=== PATIENT | male | born 1955 | race Caucasian/White ===

== ENCOUNTER 2024-01-18 06:40 | Day surgery (SDC) | payer OTHER ==
[2024-01-13 09:15] VITALS: BP 163/77; PULSE 65; RESP 18
[2024-01-13 09:28] LABS: BASOPHILS # (AUTO) 0.03 K/uL (0.00-0.20); BASOPHILS % (AUTO) 0.6 % (0.0-5.0); EOSINOPHILS # (AUTO) 0.13 K/uL (0.00-0.70); EOSINOPHILS % (AUTO) 2.5 % (0.0-8.0); HEMATOCRIT 43.6 % (42-54); IMMATURE GRANULOCYTE ABSOLUTE 0.04 K/uL (0-1); LYMPHOCYTES # (AUTO) 1.2 K/uL (1.0-4.8); LYMPHOCYTES % (AUTO) 22.7 % (21.0-51.0); MEAN CORPUSCULAR HEMOGLOBIN 34.5 pg (27.0-33.0); MEAN CORPUSCULAR HGB CONC 32.8 g/dL (32.0-36.0); MEAN CORPUSCULAR VOLUME 105.3 fL (79-99); MONOCYTES # (AUTO) 0.5 K/uL (0.1-1.0); MONOCYTES % (AUTO) 9.1 % (3.0-13.0); NEUTROPHILS # (AUTO) 3.4 K/uL (1.8-7.7); NEUTROPHILS % (AUTO) 64.3 % (40.0-77.0); PLATELET COUNT (AUTO) 148 K/uL (130-400); RED BLOOD CELL COUNT(AUTO) 4.14 MIL/uL (4.50-6.20); RED CELL DISTRIBUTION WIDTH 13.7 % (11.0-15.5); WHITE BLOOD COUNT (AUTO) 5.3 K/uL (4.8-10.8)
[2024-01-13 09:42] LABS: CREATININE 0.9 mg/dL (0.5-1.3); POTASSIUM 5.3 mmol/L (3.5-5.1)
[2024-01-13 09:51] LABS: INR <= 0.93 (0.85-1.15); PROTHROMBIN TIME 10.9 SEC (9.6-11.6)
[2024-01-13 09:52] LABS: PARTIAL THROMBOPLASTIN TIME 27.1 SEC (26.3-35.5)
[2024-01-18] VITALS (18 sets, daily range): BP systolic 115–189; BP diastolic 62–101; PULSE 58–77; RESP 13–18
[~2024-01-18] VITALS: Ht 172.7 cm; Wt 100.6 kg
[~2024-01-18 06:40] MED LIST: ATOR10TA69 PO; GLARGINE SQ; GLIP10TA19 PO; LISI10TA24 PO; METF-446 PO; MVI PO; OMEP20CA12 PO
[2024-01-18 08:23] LABS: CREATININE 0.8 mg/dL (0.5-1.3); POTASSIUM 4.3 mmol/L (3.5-5.1)
[2024-01-18] MEDS ORDERED: ONDANSETRON 4MG INJ ONE (08:50)
[2024-01-18] MEDS ORDERED: PROPOFOL 10 MG/ML 20ML VIAL IV ONE (08:50)
[2024-01-18] MEDS ORDERED: FENTANYL CITRATE PF 50 MCG/1 ML 2ML VIAL ONE (08:50)
[2024-01-18] MEDS ORDERED: ROCURONIUM BROMIDE 10MG/1ML 5ML VL ONE (08:51)
[2024-01-18] MEDS ORDERED: MIDAZOLAM HCL 1 MG/ML 2ML VIAL ONE (08:51)
[2024-01-18] MEDS ORDERED: LIDOCAINE PF 100MG/5ML (2%) SYRINGE 5ML ONE (08:53)
[2024-01-18] MEDS: 0.9%NACL 1000ML 1,000 ML IV ONE (09:00)
[2024-01-18] MEDS: CEFAZOLIN SODIUM 2 GM VIAL ONE (09:00)
[2024-01-18] MEDS: BUPIVACAINE/PF 0.5% 30ML VIAL ONE (10:09)
[2024-01-18] MEDS: EPINEPHRINE PF 1MG (1:1,000) 1 MG/ML AMP ONE (10:09)
[2024-01-18] MEDS ORDERED: SUGAMMADEX SODIUM 200 MG/2 ML VIAL IV ONE (10:36)
[2024-01-18] MEDS ORDERED: DOCU-116 PO (10:39)
[2024-01-18] MEDS ORDERED: TRAM50TA4 PO (10:39)
[2024-01-18] MEDS ORDERED: GABA-529 PO (10:39)
[2024-01-18] MEDS ORDERED: METH-662 PO (10:39)
[2024-01-18] MEDS: IPRATROPIUM/ALBUTEROL SULFATE 3 ML SOLUTION IH ONE ×2 (11:55→11:58)
[2024-01-18] MEDS: KETOROLAC 15MG/ML VIAL (15MG/ML) ONE (11:59)
[2024-01-18] MEDS: LABETALOL 20MG SYG IV ONE (12:00)
== END 2024-01-18 12:44 | disposition home or self-care (01) ==
LOC: DAH 06:40
PROVIDERS: ATTEND Surgery
DX: R19.00 Intra-abdominal and pelvic swelling, mass and lump, unspecified site (principal); K66.0 Peritoneal adhesions (postprocedural) (postinfection); I10 Essential (primary) hypertension; E66.01 Morbid (severe) obesity due to excess calories; K21.9 Gastro-esophageal reflux disease without esophagitis; E11.9 Type 2 diabetes mellitus without complications; Z79.01 Long term (current) use of anticoagulants; E78.5 Hyperlipidemia, unspecified; Z79.899 Other long term (current) drug therapy
CPT/HCPCS: 80048 ×2; 85025; 85610; 85730; 86850 ×2; 86900 ×2; 86901 ×2; 36415 ×2; 93005; 49329; 44180; 82948 ×2; 88307; 94640; A6260; A4600; A4663; A4606; A4344; J3010; J7030; J3490; J2001; J0171; J2250; J2704; J2405; J0665; J1885; J0690; G0168; A4649; A4930 ×3; A4215; A4223; A4222; A4221